=== PATIENT | male | born 1950 | race Caucasian/White ===

== ENCOUNTER 2017-08-23 10:05 | Outpatient (CLI) | payer OTHER ==
[~2017-08-23] VITALS: Ht 185.4 cm; Wt 94.1 kg
--- NOTE | ~2017-08-23 | HEMODYNAMI ---
PATIENT:KEL IBARRA MEDICAL RECORD: [id number] : 50 LOCATION:[facility] ADMISSION DATE: 08/23/17 Generatedon:08/23/201712:35 Patient name: KEL IBARRA Patient #: [id number] SSN: DO B: 1950 Date of study: 08/23/2017 Page: Of Hemodynamic Procedure Report Patient Data Patient Demographics Procedure consent was obtained First Name: KEL Gender: Male Last Name: STACEY : 1950 Middle Initial: CHRIS Age: 66 year(s) Patient #: [id number] Race: Unknown Additional ID: [id number] Contact details [address]: [address] [place] [address] State: [place] City: [place] Zip code: [address] Past Medical History Allergies Allergen Reaction Date Comments Reported Other allergy 08/23/2017 zetia, niacin Admission Admission Data Admission Date: 08/23/2017 Admission Time: 10:05 Procedure Procedure Types Cath Procedure Diagnostic Procedure LHC LH w/Coronaries Cardioversion PCI Procedure Coronary Stent Coronary Stent Initial Miscellaneous Procedures Moderate Sedation up to 30 minutes Procedure Description Procedure Date Procedure Date: 08/23/2017 Procedure Start Time: 12:15 Procedure End Time: 12:34 Procedure Staff Name Function Richmond Armendariz MD Performing Physician Suzanne Rockwell RT Monitor Madisyn Hernández RT Scrub Neo Michel RN Nurse Ramirez Rob RN Locksmith Clarice Foy CRNA Additional personnel Procedure Data Cath Procedure Fluoroscopy Diagnostic fluoroscopy Total fluoroscopy Time: 4.5 time: 4.5 min min Diagnostic fluoroscopy Total fluoroscopy dose: 637 dose: 637 mGy mGy Contrast Material Contrast Material Type Amount (ml) Isovue 300 107 Entry Location Entry Primary Successful Side Size Upsize Upsize Entry Closure Succes sful Closure Location (Fr) 1 (Fr) 2 (Fr) Remarks Device Remarks Femoral Right 5 Fr 6 Fr Exoseal artery Short Estimated blood loss: 10 ml Diagnostic catheters Device Type Used For End Catheter Placement MULTIPACK Pigtail 5 Fr LV Angiography catheter MULTIPACK JL 4.0 5Fr Left Coronary catheter Angiography MULTIPACK 3DRC 5Fr Right Coronary catheter Angiography Procedure Complications No complications Procedure Medications Medication Administration Route Dosage 0.9% NaCl I.V. 100 ml/hr Oxygen NC 3 l/min Heparin Flush Bag added to field 2 bags (1000units/500ml NS) Lidocaine 2% added to field 20 Refer to Anesthesia Notes for Sedation Medications Heparin Bolus I.V. 4000 units Integrilin (Bolus I.V. 8.5 ml 2mg/ml) Integrilin (Bolus wasted 1.5 ml 2mg/ml) Plavix P.O. 600 mg Hemodynamics Rest Heart Rate: 58 (bpm) Snapshots Pre Cath Intra NCS Post Cath Vital Signs Time Heart Resp SPO2 etCO2 NIBP (mmHg) Rhythm Pain Sedation Rate (ipm) (%) (mmHg) Status Level (bpm) 11:57:41 74 18 99 29.5 115/81(104) A-Fib 0 (11) 10(A) , No pain 12:02:16 58 20 100 32.5 103/74(83) A-Fib 0 (11) 10(A) , No pain 12:06:50 175 15 100 33.2 108/78(92) A-Fib 0 (11) 10(A) , No pain 12:11:29 67 20 100 27.2 110/60(85) A-Fib 0 (11) 10(A) , No pain 12:16:05 47 23 100 15.8 113/66(79) NSR 0 (11) 9(A) , No pain 12:20:42 48 19 100 15.1 97/57(76) NSR 0 (11) 9(A) , No pain 12:25:16 49 18 18.1 93/53(71) NSR 0 (11) 10(A) , No pain 12:29:51 49 18 22.6 93/51(68) NSR 0 (11) 10(A) , No pain 12:34:26 47 18 12.1 99/52(66) NSR 0 (11) 10(A) , No pain Medications Time Medication Route Dose Verified Delivered Reason Notes Effectiveness by by 12:02:40 0.9% NaCl I.V. 100 Neo Neo Per physician ml/hr Marilu Michel RN RN 12:02:54 Oxygen NC 3 Neo Neo Per physician l/min Marilu Michel RN RN 12:03:08 Heparin Flush added 2 Neo Neo used for Bag to bags Marilu Michel procedure (1000units/500ml field RN RN NS) 12:03:23 Lidocaine 2% added 20ml Neo Neo for local to vial Marilu Michel anesthetic field RN RN 12:13:46 Refer to Neo Neo for sedation Anesthesia Notes Marilu Michel for Sedation RN RN Medications 12:21:59 Heparin Bolus I.V. 4000 Neo Neo for units Marilu Michel anticoagulation RN RN 12:22:20 Integrilin I.V. 8.5 Neo Neo for (Bolus 2mg/ml) ml Marilu Michel antiplatelet RN RN therapy 12:22:32 Integrilin wasted 1.5 Neo Neo to sharp's (Bolus 2mg/ml) ml Marilu Michel RN RN 12:32:33 Plavix P.O. 600 Neo Neo for mg Marilu Michel antiplatelet RN RN therapy Procedure Log Time Note 11:42:45 Ramirez Rob RN sent for patient. Start room use. 11:42:46 Time tracking: Regular hours 11:42:50 Plan of Care:Hemodynamics will remain stable., Cardiac rhythm will remain stable., Comfort level will be maintained., Respiratory function will remain adequate., Patient/ family verbilizes understanding of procedure., Procedure tolerated without complication., Recovers from procedure without complications.. 11:47:09 Patient received from Pre/Post Procedure Room to [facility] 1 Alert and oriented. Tansferred to table in Supine position. 11:47:10 Warm blankets applied, and hanny hugger turned on for patient comfort. 11:47:10 Correct patient and procedure confirmed by team. 11:47:12 Signed procedure consent form obtained from patient. 11:47:12 ECG and BP/O2 sat monitors applied to patient. 11:47:13 Full Disclosure recording started 11:47:31 Quick Combo opened to sterile field. 11:47:40 Quick combo pads placed on patients chest and back. 11:56:10 Vital chart was started 11:56:17 Rhythm: atrial fibrillation 11:56:35 H&P Date Dictated: 07/26/2017 Within 30 days and on chart., H&P Addendum completed by physician on day of procedure. (MUST COMPLETE FOR ALL OUTPATIENTS). 11:56:37 Pre-procedure instructions explained to patient. 11:56:37 Pre-op teaching completed and patient verbalized understanding. 11:56:38 Family in waiting room. 11:56:40 Patient NPO since Midnight. 11:57:06 Patient allergic to Other allergyzetia, niacin 11:57:09 Is the patient allergic to Iodine/contrast media? No. 11:57:20 Is patient on blood thinner?No 11:57:23 ACC The patient was administered the following blood thiners within the last 24 hours: Xarelto 11:57:26 Patient diabetic? Yes. 11:57:27 If diabetic: On Metformin? Yes 11:57:31 If on Metformin: Last Dose? 08/22/2017 11:57:36 Previous problem with sedation/anesthesia? No ? 11:57:38 Snore? Yes 11:57:39 Sleep apnea? No 11:57:41 Deviated septum? No 11:57:42 Opens mouth fully? Yes 11:57:43 Sticks out tongue? Yes 11:57:44 Airway obstruction? No ? 11:57:46 Dentures? No ? 11:57:48 Pre procedure: right dorsailis pedis pulse 2+ Normal; easily identifiable; not easily obliterated 11:57:50 Modified Lc's test Ulnar > 7 seconds. 11:57:52 Patient pain scale 0/10 ?. 11:57:57 IV patent on arrival in left hand with 0.9% NaCl at O. 11:58:00 Lab results completed and on chart. 11:58:02 Right groin area was prepped with chlora-prep and draped in sterile fashion 11:58:03 Alarms reviewed by R. N. 11:58:03 Sharps counted by scrub and verified by R.N. 11:58:20 Clarice Foy CRNA present and monitoring patient for TIVA. 12:02:40 0.9% NaCl 100 ml/hr I.V. was administered by Neo Michel RN; Per physician; 12:02:54 Oxygen 3 l/min NC was administered by Neo Michel RN; Per physician; 12:03:07 Baseline sample Acquired. 12:03:08 Heparin Flush Bag (1000units/500ml NS) 2 bags added to field was administered by Neo Michel RN; used for procedure; 12:03:23 Lidocaine 2% 20ml vial added to field was administered by Neo Michel RN; for local anesthetic; 12:06:32 Physician paged 12:10:57 Final Timeout: patient, procedure, and site verified with staff and physician. All members of the team are in agreement. 12:11:00 Right groin site verified by team. 12:11:02 Physical assessment completed. ASA score P 2 - A patient with mild systemic disease as per Richmond Armendariz MD. 12:11:12 Sedation plan: TIVA Medication:Propofol 12:13:13 Use device set Femoral Dx 12:13:16 ACIST Syringe (30587) opened to sterile field. 12:13:17 Bag Decanter (2002S) opened to sterile field. 12:13:17 Medline Cath Pack ([id number]) opened to sterile field. 12:13:18 SHEATH 5FR Walsh (UPG444) opened to sterile field. 12:13:19 DIAGNOSTIC WIRE .035 260cm J wire (679545) opened to sterile field. 12:13:20 ACIST Hand Control (98211) opened to sterile field. 12:13:21 ACIST Manifold (97052) opened to sterile field. 12:13:21 DIAGNOSTIC Multipack 5Fr catheter set (GM4815) opened to sterile field. 12:13:22 Tegaderm 4 x 4 (1626W) opened to sterile field. 12:13:23 PERCUTANEOUS ENTRY 19GA needle opened to sterile field. 12:13:46 Refer to Anesthesia Notes for Sedation Medications was administered by Neo Michel RN; for sedation; 12:14:35 Procedure started. 12:14:42 Defibrillator synced and charged to 275 joules 12:14:42 Defibrillator synced and charged to 200 Joules. 12:14:43 Shock delivered. 12:14:49 Patient cardioverted to sinus bradycardia. 12:15:30 Local anesthetic to right femoral artery with Lidocaine 2% by Richmond Armendariz MD.INITIAL ACCESS ONLY 12:15:48 A 5 Fr sheath was inserted into the Right Femoral artery 12:15:59 Baseline sample Acquired. 12:16:29 A MULTIPACK Pigtail 5 Fr catheter was advanced over the wire and used for LV Angiography. 12:16:36 LV gram done using MADDOX 12:16:39 Injector settings: Ml/sec: 10, Volume: 20, 12:17:05 EF : 30 % 12:17:13 Catheter removed. 12:17:18 A MULTIPACK JL 4.0 5Fr catheter was advanced over the wire and used for Left Coronary Angiography. 12:18:22 Catheter removed. 12:18:26 A MULTIPACK 3DRC 5Fr catheter was advanced over the wire and used for Right Coronary Angiography. 12:18:30 Use device set [facility] PCI 12:18:33 INFLATOR Merit BasixCompak (XH4816) opened to sterile field. 12:18:34 SHEATH 6FR Walsh (VGZ373) opened to sterile field. 12:18:41 CHOICE PT Extra Support 182cm wire ([id number]) opened to sterile field. 12:19:22 GUIDE 6FR XBLAD 3.5 catheter ([id number]) opened to sterile field. 12:19:24 Catheter removed. 12:20:53 Sheath upsized to a 6 Fr Short. 12:21:00 6 Fr XBLAD 3.5 guide catheter was inserted over the wire 12:21:59 Heparin Bolus 4000 units I.V. was administered by Neo Michel RN; for anticoagulation; 12:22:12 Coice PT ES wire advanced. 12:22:20 Integrilin (Bolus 2mg/ml) 8.5 ml I.V. was administered by Neo Michel RN; for antiplatelet therapy; 12:22:32 Integrilin (Bolus 2mg/ml) 1.5 ml wasted was administered by Neo Michel RN; to sharp's; 12:24:17 Inflation Number: 1 A INTEGRITY RX 3.0 x 18 stent ([id number]) was prepped and advanced across the Mid CX. The stent was deployed at 17 CANDIDO for 0:10 (min:sec). 12:25:48 Stent catheter was removed intact over wire. 12:27:20 The EUPHORA 2.0 x 15 Balloon ([id number]) was advanced and then removed because of failure to cross lesion 12:27:26 Balloon removed over the wire. 12:27:27 Wire removed. 12:27:27 Guide catheter removed. 12::39 Sheath removed intact; hemostasis achieved with Exoseal to the Right Femoral artery. 12:27:40 Procedure ended.(Physican Out) 12::54 Fluoroscopy time 04.50 minutes. 12::58 Fluoroscopy dose: 637 mGy 12::58 Flurop Dose total: 637 12:28:00 Contrast amount:Isovue 300 107ml. 12:28:02 Sharps counted by scrub and verified by R.N. 12:28:05 Insertion/operative site no bleeding no hematoma. 12:28:14 Post-op/insertion site Right Femoral artery dressed using a 4 x 4 and Tegaderm. 12:28:19 Post right femoral artery:stable, soft, clean and dry 12::58 Post Procedure Pulses reassessed and unchanged 12:30:09 Post-procedure physical assessment completed. ASA score P 2 - A patient with mild systemic disease as per Richmond Armendariz MD. 12:30:16 Post procedure rhythm: sinus bradycardia 12:30:20 Estimated blood loss: 10 ml 12::58 Post procedure instruction explained to patient.Patient verbalizes understanding. 12::58 Patient needs reinforcement of post procedure teaching. 12:31:07 Procedure type changed to Cath procedure, Diagnostic procedure, LHC, LHC w/Coronaries, Cardioversion, PCI procedure, Coronary Stent, Coronary Stent Initial, Miscellaneous Procedures, Moderate Sedation up to 30 minutes 12:31:12 Procedure Complication : No complications 12:31:14 See physician's report for complete and final results. 12:31:25 EXOSEAL 6Fr (EX600) opened to sterile field. 12:32:33 Plavix 600 mg P.O. was administered by Neo Michel RN; for antiplatelet therapy; 12:33:10 Procedure and supply charges have been captured, reviewed, submitted and are correct. 12:34:33 Vital chart was stopped 12:34:36 Report given to Pre/Post Procedure Room. 12:34:38 Patient transfered to Pre/Post Procedure Room with Stretcher. 12:34:46 Procedure ended. 12:34:46 Full Disclosure recording stopped 12:34:49 End room use (Document Last) Intervention Summary Intervention Notes Time ActionType Lesion and Equipment Action# Pressure Duration Attributes Used 12:24:17 Place stent Mid CX INTEGRITY RX 1 17 00:10 3.0 x 18 stent ([id number]) 12:27:20 Discard EUPHORA 2.0 Balloon x 15 Balloon ([id number]) Device Usage Item Name Manufacture Quantity Catalog Number Hospital Part Current Mini mal Lot# / Charge Number Stock Stock Serial# Code Quick Combo Edge Systems 1 [id number] 503844 709066 928539 5 ACIST Acist 1 56599 947673 454211 958489 20 Syringe Medical (08260) Systems Inc Bag Decanter Microtek 1 2001S 207382 38117 013857 5 (2001S) Medical Inc. Medline Cath Cardinal 1 [id number] 230857 29054 757554 5 Pack Health ([id number]) SHEATH 5FR Terumo 1 BTW705 175808 613164 123274 40 Walsh (RKK687) DIAGNOSTIC St Dhaval 1 066596 654622 789040 836048 30 WIRE .035 260cm J wire (552799) ACIST Hand Acist 1 26133 631161 896678 253512 5 Control Medical (47145) Systems Inc ACIST Acist 1 84022 860567 709201 587733 5 Manifold Medical (49637) Systems Inc DIAGNOSTIC Cardinal 1 OK0102 774376 06023 391324 30 Multipack latakoo 5Fr catheter set (YM4937) Tegaderm 4 x 3M 1 1626W 211440 625279 076258 5 4 (1626W) PERCUTANEOUS Cook Medical 1 R08785 179607 410427 5 ENTRY 19GA needle MULTIPACK Cardinal 1 401536 5 Pigtail 5 Fr Health catheter MULTIPACK JL Cardinal 1 230358 5 4.0 5Fr Health catheter MULTIPACK Cardinal 1 290592 5 3DRC 5Fr Health catheter INFLATOR Merit 1 BS2817 721855 803049 553377 15 [employer] Medical BasixCompak (YX6112) SHEATH 6FR Terumo 1 UGS900 408686 272567 136595 40 Walsh (KIB249) CHOICE PT [place] 1 [id number] 671645 710820 063357 5 Extra Scientific Support 182cm wire ([id number]) GUIDE 6FR Cardinal 1 [id number] 346523 130090 532067 10 XBLAD 3.5 Health catheter (67144040) INTEGRITY RX Medtronic 1 [id number] 071657 100732 804500 5 [id number] 3.0 x 18 stent ([id number]) EUPHORA 2.0 Medtronic 1 [id number] 673092 578575 913094 5 [id number] x 15 Balloon ([id number]) EXOSEAL 6Fr Cardinal 1 EX600 269841 893113 541571 10 (EX600) Health Signature Audit [place] Stage Time Signature Unsigned Intra-Procedure 08/23/2017 Suzanne 12:34:59 PM Counts RT(R) Signatures Monitor : Suzanne Signature : Counts RT Date : Time : [address] [address]
[2017-08-23] MEDS ORDERED: ALTACE10 MG PO (10:32)
[2017-08-23] MEDS ORDERED: CRESTOR40 MG PO (10:33)
[2017-08-23] MEDS ORDERED: METOPROLOL TART25 MG PO (10:33)
[2017-08-23] MEDS ORDERED: AVODART0.5 MG PO (10:33)
[2017-08-23] MEDS ORDERED: JENTADUETO 2.51 EACH PO (10:34)
[2017-08-23] MEDS ORDERED: FISH OIL 1,0001 CA1 PO (10:34)
[2017-08-23] MEDS ORDERED: SORINE80 MG PO (10:34)
[2017-08-23] MEDS ORDERED: XARELTO20 MG PO (10:34)
[2017-08-23] MEDS ORDERED: CO Q-10200 MG PO (10:35)
[2017-08-23] MEDS ORDERED: BAYER CHEWABLE81 MG PO (10:35)
[2017-08-23] MEDS ORDERED: VITAMIN D31000 UNIT PO (10:35)
[2017-08-23] MEDS ORDERED: FLOVENT DI50 MCG/DIS INH (10:36)
[2017-08-23 10:54] LABS: BASOPHILS 0.1 % (0-2); EOSINOPHILS 3.5 % (0-7); HEMATOCRIT 48.5 % (42.0-54.0); HEMOGLOBIN 16.5 g/dL (13.5-17.5); IMMATURE GRANULOCYTES 0.3 % (0-5); LYMPHOCYTES 25.1 % (15-50); MCH 31.1 pg (26.0-34.0); MCV 91.3 fL (80.0-100.0); MEAN PLATELET VOLUME 9.5 fL (7.4-10.4); MONOCYTES 11.3 % (2-11); NEUTROPHILS 59.7 % (40-80); PLATELET COUNT 145 10x3/uL (130-400); RBC 5.31 10x6/uL (4.20-6.10); WBC 7.9 10x3/uL (4.8-10.8)
[2017-08-23 11:06] LABS: CALC OSMOLALITY 283 mosm/kg (275-300); CALCIUM 9.6 mg/dL (8.5-10.1); CARBON DIOXIDE 30.2 mmol/L (21.0-32.0); CHLORIDE - SERUM 103 mmol/L (98-107); CREATININE - SERUM 0.9 mg/dL (0.6-1.3); GLUCOSE 164 mg/dL (74-106); INR 1.14 (0.85-1.17); POTASSIUM - SERUM 4.7 mmol/L (3.5-5.1); PROTIME 14.2 SECONDS (11.6-15.0); SODIUM 140 mmol/L (136-145); UREA NITROGEN 14 mg/dL (7-18); eGFR NON AFRICAN AMERICAN 90 mL/min (90-120)
[2017-08-23 11:11] VITALS: BP 119/79; Ht 185.4 cm; Wt 94.1 kg
--- NOTE | 2017-08-23 13:00 | NUR ---
2L NC, NO RESP DISTRESS. RIGHT GROIN 6F EXOSEAL CDI, NO BLEEDING OR HEMATOMA NOTED. NO C/O NAUSEA OR PAIN. VSS. FAMILY AT BEDSIDE, CALL LIGHT WITHIN REACH.
[2017-08-23] MEDS ORDERED: PLAVIX75 MG PO (13:03)
--- NOTE | 2017-08-23 13:30 | NUR ---
2L NC, NO RESP DISTRESS. RIGHT GROIN 6F EXOSEAL CDI, NO BLEEDING OR HEMATOMA NOTED. NO C/O PAIN OR NAUSEA. VSS. AT BEDSIDE, WILL CONTINUE TO MONITOR CLOSELY.
--- NOTE | 2017-08-23 13:45 | NUR ---
RESTING QUIETLY WITH EYES CLOSED. VSS. RIGHT GROIN 5F EXOSEAL CDI, NO BLEEDING OR HEMATOMA NOTED. NO C/O PAIN. CALL LIGHT WITHIN REACH.
--- NOTE | 2017-08-23 16:00 | NUR ---
HOB ELEVATED 30 DEGREES. RIGHT GROIN 6F EXOSEAL CDI, NO BLEEDING OR HEMATOMA NOTED. VSS.
--- NOTE | 2017-08-23 16:15 | NUR ---
LEFT PIV D/C'D WITH CATHETER INTACT, BAND AID TO SITE. UP TO BEDSIDE TO GET DRESSED.
--- NOTE | 2017-08-23 16:20 | NUR ---
DISCHARGE INSTRUCTIONS GIVEN, VERBALIZED UNDERSTANDING.
--- NOTE | 2017-08-23 16:30 | NUR ---
TAKEN OUT VIA WHEELCHAIR BY CATH DIRECTOR OF LOGISTICS. LEFT FACILITY WITH FAMILY AND ALL PERSONAL BELONGINGS.
--- NOTE | 2017-08-29 12:15 | OP ---
PATIENT NAME: KEL IBARRA MEDICAL RECORD: [id number] :50 LOCATION:D.CAT ADMISSION DATE: SURGEON: DEJUAN JACK MD DATE OF OPERATION: 08/23/2017 PROCEDURES: 1. DC cardioversion. 2. PTCA stent left circumflex. 3. Left heart catheterization. 4. Selective coronary angiography. 5. Left ventriculogram. INDICATION: Angina, coronary artery disease, and atrial fibrillation. IV conscious sedation was per anesthesia. Continuous heart rate, O2 saturation, blood pressure monitoring were all undertaken, all of which remains stable. He received 1 shock at 275 joules restoring sinus rhythm. FINDINGS: Left ventriculogram was performed in standard 30-degree MADDOX view, reveals good cardiac wall motion throughout all segments. Overall ejection fraction 35%. SELECTIVE CORONARY ANGIOGRAPHY: 1. Left main showed no significant angiographic disease. 2. Left anterior descending has previously placed stents proximally with up to 75% in-stent restenosis. 3. Left circumflex has 80% stenosis in the mid vessel. 4. Right coronary has moderate irregularities, but no flow-limiting stenosis. Previously placed stent of the right coronary are widely patent. PTCA STENT OF THE LEFT CIRCUMFLEX: The stent used was a 3.30 x 18 mm Integrity. Result was 0% residual stenosis. OVERALL IMPRESSION: Successful percutaneous transluminal coronary angioplasty stent of the left circumflex going from 80% initial stenosis to 0% residual. PLAN: Planned for laser atherectomy of the LAD in the near future for the in-stent restenosis of the LAD. TRANSINT:[id number] Voice Confirmation ID: [id number] DOCUMENT ID: [id number] DEJUAN JACK MD at 1215 CC: [id number] DICTATION DATE: 08/23/17 1231 RETAIL ANALYST: 08/23/17 1349 [facility] CLI 08/23/17 [place] [id number]
== END 2017-08-23 16:30 | disposition home or self-care (01) ==
LOC: D.CATH 10:05
PROVIDERS: Internal Medicine Interventional Cardiology
DX: I25.119 Atherosclerotic heart disease of native coronary artery with unspecified angina pectoris (principal); T82.855A Stenosis of coronary artery stent, initial encounter; I48.91 Unspecified atrial fibrillation; Z01.812 Encounter for preprocedural laboratory examination

== ENCOUNTER → 2017-08-25 07:52 | Outpatient (CLI) | payer OTHER ==
[~2017-08-25] VITALS: Ht 185.4 cm; Wt 94.5 kg
--- NOTE | ~2017-08-25 | HEMODYNAMI ---
PATIENT:KEL IBARRA MEDICAL RECORD: [id number] : 50 LOCATION:[facility]JA ADMISSION DATE: 08/25/17 Generatedon:08/25/201710:45 Patient name: KEL IBARRA Patient #: [id number] SSN: DO B: 1950 Date of study: 08/25/2017 Page: Of Hemodynamic Procedure Report Patient Data Patient Demographics Procedure consent was obtained First Name: KEL Gender: Male Last Name: STACEY : 1950 Middle Initial: CHRIS Age: 66 year(s) Patient #: [id number] Race: Unknown Additional ID: [id number] Contact details [address]: [address] [place] [address] State: [place] City: [place] Zip code: [address] Past Medical History Allergies Allergen Reaction Date Comments Reported Other allergy 08/23/2017 zetia, niacin Admission Admission Data Admission Date: 08/25/2017 Admission Time: 7:52 Procedure Procedure Types Cath Procedure PCI Procedure Coronary Atherectomy Atherectomy w/PTCA Coronary Initial Miscellaneous Procedures Moderate Sedation up to 30 minutes Procedure Description Procedure Date Procedure Date: 08/25/2017 Procedure Start Time: 10:22 Procedure End Time: 10:45 Procedure Staff Name Function Richmond Armendariz MD Performing Physician Suzanne Rockwell RT Monitor Madisyn Hernández RT Scrub Neo Michel RN Nurse Procedure Data Cath Procedure Fluoroscopy Diagnostic fluoroscopy Total fluoroscopy Time: 7.4 time: 7.4 min min Diagnostic fluoroscopy Total fluoroscopy dose: 909 dose: 909 mGy mGy Contrast Material Contrast Material Type Amount (ml) Isovue 300 60 Entry Location Entry Primary Successful Side Size Upsize Upsize Entry Closure Succes sful Closure Location (Fr) 1 (Fr) 2 (Fr) Remarks Device Remarks Femoral Right 6 Fr Exoseal artery Short Estimated blood loss: 10 ml Procedure Complications No complications Procedure Medications Medication Administration Route Dosage 0.9% NaCl I.V. 100 ml/hr Oxygen NC 2 l/min Heparin Flush Bag added to field 2 bags (1000units/500ml NS) Lidocaine 2% added to field 20 Versed I.V. 2 mg Fentanyl I.V. 100 mcg Heparin Bolus I.V. 4000 units Hemodynamics Rest Heart Rate: 49 (bpm) Snapshots Pre Cath Intra NCS Post Cath Vital Signs Time Heart Resp SPO2 etCO2 NIBP Rhythm Pain Sedation Rate (ipm) (%) (mmHg) (mmHg) Status Level (bpm) 10:08:25 49 20 99 35.4 108/67(88) NSR 0 (11) 10(A) , No pain 10:13:40 50 23 99 33.9 107/68(84) NSR 0 (11) 10(A) , No pain 10:18:16 50 17 97 39.1 102/58(74) NSR 0 (11) 10(A) , No pain 10:22:49 52 18 98 37.6 107/68(88) NSR 0 (11) 10(A) , No pain 10:27:21 52 13 96 34.6 93/59(74) NSR 0 (11) 10(A) , No pain 10:31:54 54 16 96 0 96/63(82) NSR 0 (11) 9(A) , No pain 10:37:07 50 14 97 19.6 96/59(74) NSR 0 (11) 9(A) , No pain 10:41:40 54 16 98 39.2 109/68(90) NSR 0 (11) 9(A) , No pain Medications Time Medication Route Dose Verified Delivered Reason Notes Effectiveness by by 10:08:13 0.9% NaCl I.V. 100 Neo Neo Per physician ml/hr Marilu Michel RN RN 10:08:31 Oxygen NC 2 Neo Neo Per physician l/min Marilu Michel RN RN 10:08:49 Heparin Flush added 2 Neo Neo used for Bag to bags Marilu Michel procedure (1000units/500ml field ALEJANDRE RN NS) 10:09:04 Lidocaine 2% added 20ml Neo Neo for local to vial Marilu Michel anesthetic field ALEJANDRE RN 10:21:58 Versed I.V. 2 mg Neo Neo for sedation Marilu Michel RN, RN 10:22:11 Fentanyl I.V. 100 Neo Neo for sedation mcg Lorigan Lorigan RN RN 10:24:22 Heparin Bolus I.V. 4000 Neo Larson for units Marilu Michel anticoagulation RN recreation superintendent Log Time Note 9:52:24 Suzanne Rockwell RT(R) sent for patient. Start room use. 9:52:25 Time tracking: Regular hours 9:52:29 Plan of Care:Hemodynamics will remain stable., Cardiac rhythm will remain stable., Comfort level will be maintained., Respiratory function will remain adequate., Patient/ family verbilizes understanding of procedure., Procedure tolerated without complication., Recovers from procedure without complications.. 10:06:51 Patient received from Pre/Post Procedure Room to CCL 1 Alert and oriented. Tansferred to table in Supine position. 10:06:52 Warm blankets applied, and hanny hugger turned on for patient comfort. 10:06:53 Correct patient and procedure confirmed by team. 10:06:54 Signed procedure consent form obtained from patient. 10:06:54 ECG and BP/O2 sat monitors applied to patient. 10:06:55 Full Disclosure recording started 10:07:38 Baseline sample Acquired. 10:07:38 Vital chart was started 10:07:44 Rhythm: sinus bradycardia 10:07:57 H&P Date Dictated: 08/25/2017 Within 30 days and on chart., New H&P dictated by physician.. 10:07:59 Pre-procedure instructions explained to patient. 10:07:59 Pre-op teaching completed and patient verbalized understanding. 10:08:01 Family in patients room. 10:08:08 Patient NPO since Midnight. 10:08:13 0.9% NaCl 100 ml/hr I.V. was administered by Neo Michel RN; Per physician; 10:08:15 Is the patient allergic to Iodine/contrast media? No. 10:08:16 Is patient on blood thinner?Yes 10:08:20 ACC The patient was administered the following blood thiners within the last 24 hours: ACCPlavix, ACCHeparin 10:08:28 Previous problem with sedation/anesthesia? No ? 10:08:31 Oxygen 2 l/min NC was administered by Neo Michel RN; Per physician; 10:08:49 Heparin Flush Bag (1000units/500ml NS) 2 bags added to field was administered by Neo Michel RN; used for procedure; 10:08:53 Patient diabetic? Yes. 10:08:54 If diabetic: On Metformin? No 10:09:04 Lidocaine 2% 20ml vial added to field was administered by Neo Michel RN; for local anesthetic; 10:09:52 Snore? Yes 10:09:53 Sleep apnea? No 10:09:54 Deviated septum? No 10:09:55 Opens mouth fully? No 10:09:56 Sticks out tongue? Yes 10:09:58 Airway obstruction? No ? 10:10:00 Dentures? No ? 10:10:04 Pre procedure: right dorsailis pedis pulse 2+ Normal; easily identifiable; not easily obliterated 10:10:07 Patient pain scale 0/10 ?. 10:10:13 IV patent on arrival in left hand with 0.9% NaCl at [facility]. 10:10:17 Lab results completed and on chart. 10:10:20 Right groin area was prepped with chlora-prep and draped in sterile fashion 10:10:21 Alarms reviewed by R. N. 10:10:21 Sharps counted by scrub and verified by R.N. 10:10:26 Use device set CATH PACK 10:10:46 Use device set TAUTH PCI 10:10:51 ACIST Syringe (51398) opened to sterile field. 10:10:51 ACIST Hand Control (63501) opened to sterile field. 10:10:52 ACIST Manifold (84762) opened to sterile field. 10:10:52 Medline Cath Pack ([id number]) opened to sterile field. 10:10:53 Bag Decanter () opened to sterile field. 10:10:54 DIAGNOSTIC WIRE .035 260cm J wire (583363) opened to sterile field. 10:10:54 PERCUTANEOUS ENTRY 19GA needle opened to sterile field. 10:10:55 Tegaderm 4 x 4 (1626W) opened to sterile field. 10:10:55 INFLATOR Merit BasixCompak (VU4201) opened to sterile field. 10:10:56 SHEATH 6FR Philippi (PTN590) opened to sterile field. 10:11:09 CHOICE PT Extra Support 182cm wire ([id number]) opened to sterile field. 10:11:12 GUIDE 6FR XBLAD 3.5 catheter ([id number]) opened to sterile field. 10:16:17 Zero performed for pressure channel P1 10:18:46 Physician paged 10:20:26 Final Timeout: patient, procedure, and site verified with staff and physician. All members of the team are in agreement. 10:20:29 Right groin site verified by team. 10:20:32 Physical assessment completed. ASA score P 2 - A patient with mild systemic disease as per Richmond Armendariz MD. 10:20:35 Sedation plan: IV Moderate Sedation Medication:Versed, Fentanyl 10::58 Versed 2 mg I.V. was administered by Neo Michel RN; for sedation; ::58 Procedure started. 10:22:01 Local anesthetic to right femoral artery with Lidocaine 2% by Richmond Armendariz MD.INITIAL ACCESS ONLY 10:22:11 Fentanyl 100 mcg I.V. was administered by Neo Michel RN; for sedation; ::18 A 6 Fr Short sheath was inserted into the Right Femoral artery 10:22:53 6 Fr XBLAD 3.5 guide catheter was inserted over the wire 10:23:43 CHOICE PT ES wire advanced. 10:24:22 Heparin Bolus 4000 units I.V. was administered by Neo Michel RN; for anticoagulation; 10::29 A LASER ELCA 0.9 Rx atherectomy catheter (813533) was prepped and advanced across the Mid LAD lesion. Pass Number: 1 10:26:39 Laser pass to mLAD with Fluence of 40 and Rate of 40. 10:26:58 Laser pass to mLAD with Fluence of 40 and Rate of 40. 10:27:14 Laser pass to mLAD with Fluence of 40 and Rate of 40. 10:27:31 Laser catheter removed. 10:27:46 Wire removed. 10:27:47 Guide catheter removed. 10:28:37 6 Fr XBALD 4.0 guide catheter was inserted over the wire 10:28:48 GUIDE 6FR XBLAD 4.0 catheter ([id number]) opened to sterile field. 10:29:09 CHOICE PT ES wire advanced. 10:31:27 A LASER ELCA 0.9 Rx atherectomy catheter (610461) was prepped and advanced across the Mid LAD lesion. Pass Number: 4 10:32:07 Laser pass to mLAD with Fluence of 40 and Rate of 40. 10:32:15 Laser pass to mLAD with Fluence of 40 and Rate of 40. 10:32:30 Laser catheter removed. 10:35:25 Inflation number: 1 A EUPHORA 3.5 x 20 Balloon ([id number]) was prepped and advanced across the Mid LAD, then inflated to 17 CANDIDO for 0:07 (min:sec). 10:35:38 Balloon removed over the wire. 10:38:09 Laser total pulses delivered: 1820 10:38:15 Laser total treatment time: 0 minutes 45 seconds 10:39:07 Inflation number: 2 The EUPHORA 3.5 x 20 Balloon ([id number]) was reinflated across the Mid LAD, to 17 CANDIDO for 0:10 (min:sec). 10:39:49 Inflation number: 3 The EUPHORA 3.5 x 20 Balloon ([id number]) was reinflated across the Mid LAD, to 0 CANDIDO for 0:09 (min:sec). 10:40:17 Balloon removed over the wire. 10:40:17 Wire removed. 10:40:18 Guide catheter removed. 10:40:25 Sheath removed intact; hemostasis achieved with Exoseal to the Right Femoral artery. 10:40:34 Procedure ended.(Physican Out) 10:40:49 Fluoroscopy time 07.40 minutes. 10:41:04 Flurop Dose total: 909 10:41:04 Fluoroscopy dose: 909 mGy 10:41:21 EXOSEAL 6Fr (EX600) opened to sterile field. 10:42:05 Contrast amount:Isovue 300 60ml. 10:42:07 Sharps counted by scrub and verified by R.N. 10:42:08 Insertion/operative site no bleeding no hematoma. 10:42:12 Post-op/insertion site Right Femoral artery dressed using a 4 x 4 and Tegaderm. 10:42:15 Post right femoral artery:stable, soft, clean and dry 10:42:17 Post Procedure Pulses reassessed and unchanged 10:42:20 Post-procedure physical assessment completed. ASA score P 2 - A patient with mild systemic disease as per Richmond Armendariz MD. 10:42:22 Post procedure rhythm: unchanged. 10:42:25 Estimated blood loss: 10 ml 10:42:27 Post procedure instruction explained to patient.Patient verbalizes understanding. 10:42:27 Patient needs reinforcement of post procedure teaching. 10:43:08 Procedure type changed to Cath procedure, PCI procedure, Coronary Atherectomy, Atherectomy w/PTCA Coronary Initial, Miscellaneous Procedures, Moderate Sedation up to 30 minutes 10:43:12 Procedure Complication : No complications 10:43:16 See physician's report for complete and final results. 10:44:00 Procedure and supply charges have been captured, reviewed, submitted and are correct. 10:44:55 Vital chart was stopped 10:44:56 Report given to Pre/Post Procedure Room. 10:44:59 Patient transfered to Pre/Post Procedure Room with Stretcher. 10:45:09 Procedure ended. 10:45:09 Full Disclosure recording stopped 10:45:12 End room use (Document Last) Intervention Summary Intervention Notes Time ActionType Lesion and Equipment Action# Pressure Duration Attributes Used 10:26:29 Atherectomy Mid LAD LASER ELCA 00:00 0.9 Rx atherectomy catheter (302176) 10:31:27 Atherectomy Mid LAD LASER ELCA 00:00 0.9 Rx atherectomy catheter (298797) 10:35:25 Inflate Mid LAD EUPHORA 3.5 1 17 00:07 balloon x 20 Balloon ([id number]) 10:39:07 Reinflate Mid LAD EUPHORA 3.5 2 17 00:10 balloon x 20 Balloon ([id number]) 10:39:49 Reinflate Mid LAD EUPHORA 3.5 3 0 00:09 balloon x 20 Balloon ([id number]) Device Usage Item Name Manufacture Quantity Catalog Number Hospital Part Current Mini [facility] Lot# / Charge Number Stock Stock Serial# Code ACIST Acist 1 22259 346611 592062 018707 20 Syringe Medical (01395) Systems Inc ACIST Hand Acist 1 82913 625517 310856 047445 5 Control Medical (61229) Systems Inc ACIST Acist 1 08465 381710 055648 499408 5 Manifold Medical (50019) Systems Inc Medline Cath Cardinal 1 [id number] 210871 21638 312070 5 TransMedics ([id number]) Bag Decanter Microtek 1 479566 72132 875788 5 () Medical Inc. DIAGNOSTIC St Dhaval 1 838922 395196 370476 786393 30 WIRE .035 260cm J wire (119511) PERCUTANEOUS Cook Medical 1 O34795 485895 771269 5 ENTRY 19GA needle Tegaderm 4 x 3M 1 1626W 318914 486826 794843 5 4 (1626W) INFLATOR Merit 1 ND2308 557033 130845 312735 15 Wave Broadband Medical BasixCompak (PT3767) SHEATH 6FR Terumo 1 TOL360 884591 159256 430965 40 Philippi (NYP299) CHOICE PT Amo 1 [id number] 512617 793512 134071 5 Extra Scientific Support 182cm wire ([id number]) GUIDE 6FR Cardinal 1 [id number] 390745 531551 835138 10 XBLAD 3.5 Health catheter (12011584) LASER ELCA Annalisa 1 110-004 772751 951795 534370 5 [id number] 0.9 Rx Healthcare atherectomy (850482) catheter (030893) GUIDE 6FR Cardinal 1 [id number] 925780 300954 100649 3 XBLAD 4.0 Health catheter (20040628) EUPHORA 3.5 Medtronic 1 [id number] 391022 711361 832378 5 [id number] x 20 Balloon ([id number]) EXOSEAL 6Fr Cardinal 1 EX600 441356 508910 529532 10 (EX600) Health Signature Audit [place] Stage Time Signature Unsigned Intra-Procedure 08/25/2017 Suzanne 10:45:22 AM Counts RT(R) Signatures Monitor : Suzanne Signature : Counts RT Date : Time : [facility] [address] [place] [address]
[~2017-08-25 07:52] MED LIST: ALTACE10 MG PO; AVODART0.5 MG PO; BAYER CHEWABLE81 MG PO; CO Q-10200 MG PO; CRESTOR40 MG PO; FISH OIL 1,0001 CA1 PO; FLOVENT DI50 MCG/DIS INH; JENTADUETO 2.51 EACH PO; METOPROLOL TART25 MG PO; PLAVIX75 MG PO; SORINE80 MG PO; VITAMIN D31000 UNIT PO; XARELTO20 MG PO
[2017-08-25 08:34] VITALS: BP 132/79; Ht 185.4 cm; Wt 94.5 kg
[2017-08-25 08:43] LABS: BASOPHILS 0.1 % (0-2); EOSINOPHILS 4.1 % (0-7); HEMATOCRIT 47.2 % (42.0-54.0); IMMATURE GRANULOCYTES 0.4 % (0-5); LYMPHOCYTES 17.7 % (15-50); MCH 31.1 pg (26.0-34.0); MCHC 33.9 g/dL (31.0-37.0); MCV 91.7 fL (80.0-100.0); MEAN PLATELET VOLUME 9.2 fL (7.4-10.4); MONOCYTES 14.7 % (2-11); PLATELET COUNT 129 10x3/uL (130-400); RBC 5.15 10x6/uL (4.20-6.10); RDW 13.1 % (11.5-14.5)
[2017-08-25 09:03] LABS: CALC OSMOLALITY 284 mosm/kg (275-300); CALCIUM 9.6 mg/dL (8.5-10.1); CARBON DIOXIDE 29.4 mmol/L (21.0-32.0); CHLORIDE - SERUM 104 mmol/L (98-107); CREATININE - SERUM 0.9 mg/dL (0.6-1.3); GLUCOSE 172 mg/dL (74-106); POTASSIUM - SERUM 4.7 mmol/L (3.5-5.1); SODIUM 141 mmol/L (136-145); UREA NITROGEN 12 mg/dL (7-18); eGFR NON AFRICAN AMERICAN 90 mL/min (90-120)
--- NOTE | 2017-08-25 11:04 | NUR ---
6 DEMARIO EXOSEAL R/GROIN CDI NO BLEEDING NO HEMATOMA NOTED. SB RATE 55 CHEST PAIN DENIED INSTRUCTED PATIENT TO KEEP HEAD FLAT ON PILLOW WITH RLE STRAIGHT
--- NOTE | 2017-08-25 11:19 | NUR ---
6 FR EXOSEAL R/GROIN CDI NO BLEEDING NO HEAMTOMA NOTED PATIENT DENIED PAIN OR NEEDS TOLERATING FLUIDS WITH NO NAUSEA
--- NOTE | 2017-08-25 11:29 | NUR ---
6 FR EXOSEAL R/GROIN REMAINS CDI WITH NO BLEEDING OR HEMATOMA NOTED.SANDWICH AND WATER TO BEDSIDE WITH FAMILY ASSISTING
--- NOTE | 2017-08-25 11:55 | NUR ---
6 FR EXOSEAL R/GROIN CDI NO BLEEDING NO HEMATOMA NOTED VSS
--- NOTE | 2017-08-25 12:58 | NUR ---
RESTING QUIETLY WITH EYES CLOSED. VSS AND NO DISTRESS NOTED 6 FR EXOSEAL R/GROIN CDI
--- NOTE | 2017-08-25 13:53 | NUR ---
VOICED NO PAIN OR NEEDS WITH 6 FR EXOSEAL R/GROIN CDI VSS
--- NOTE | 2017-08-25 14:05 | NUR ---
REPOSITIONED TO SITTING WITH HOB UP 30 DEGREES R/GROIN REMAINS CDI NO BLEEDING NO HEAMTOMA NOTED
--- NOTE | 2017-08-25 14:37 | NUR ---
PIV REMOVED WITH DRESSING APPLIED. R/GROIN REMAINS CDI WITH NO DISTRESS NOTED. PATIENT UP TO GET DRESSED
--- NOTE | 2017-08-25 14:42 | NUR ---
PIV REMOVED WITH DRESSING APPLIED. CHEST PAIN IS DENIED WITH R/GROIN CDI NO BLEEDING NO HEMATOMA NOTED. PATIENT UP TO GET DRESSED FOR DISCHARGE HOME
--- NOTE | 2017-08-25 15:03 | NUR ---
VERBAL AND WRITTEN DISCHARGE GONE OVER WITH PATIENT AND BOTH VERBALIZED UNDERSTANDING. R/GROIN CDI NO BLEEDING NO HEMATOMA NOTED PATIENT LEFT VIA WC TO PARKING FOR TRANSPORT HOME WITH CHEST PAIN DENIED
--- NOTE | 2017-08-29 12:15 | HP ---
PATIENT: KEL RODRIGUEZ MEDICAL RECORD: [id number] ACCOUNT: [id number] LOCATION:BENJI : 50 ADMISSION DATE: 08/25/17 HISTORY AND PHYSICAL EXAMINATION ADMITTING DIAGNOSES: 1. Angina. 2. Coronary artery disease. 3. Recent percutaneous transluminal coronary angioplasty stent of the left circumflex with concomitant in-stent restenosis of LAD. 4. Atrial fibrillation. 5. Status post recent DC cardioversion. HISTORY OF PRESENT ILLNESS: Mr. Rodriguez presents with anginal symptomatology, found to have in-stent restenosis of the LAD, found to have new disease of the circumflex. He underwent successful PTCA stent of the circumflex. He is now brought back for laser atherectomy for the in-stent restenosis of the LAD. REVIEW OF SYSTEMS: The patient reports easy bruising but reports no swollen glands. The patient reports no fever, no night sweats, no significant weight gain, no significant weight loss. No significant exercise tolerance. The patient reports no dry eyes, no irritation, no vision change. Patient reports no difficulty hearing and no ear pain. Patient reports no frequent nose bleeds or nose and sinus problems. Patient reports on arm pain on exertion. No shortness of breath while lying down. No history of heart murmur. Patient reports no cough, no wheezing or coughing up blood. Patient reports no abdominal pain, no vomiting. Normal appetite. No diarrhea and not vomiting blood. No nausea and no constipation. Patient reports no incontinence. No difficulty urinating. No hematuria. No increased frequency. Patient reports no muscle aches. No weakness, no arthralgias, no back pain. No swelling of the extremities. Patient reports no abnormal mole, no jaundice, no rashes. Reports no loss of consciousness. No weakness and no numbness. No seizures, dizziness, or headaches. The patient reports no depression, no sleep disturbance, feeling safe in a relationship and no alcohol abuse. Patient reports on fatigue. Reports no runny nose or sinus pressure. No itching, no hives, and no frequent sneezing. PHYSICAL EXAMINATION: GENERAL APPEARANCE: Well-nourished, well-developed, appears stated age. Level of distress, comfortable. PSYCHIATRIC: Mental status, alert, normal affect. Orientation, oriented to time, place and person. EYES: Lids and conjunctiva, noninjected. No discharge, no pallor. ENT: Lips, teeth, gums, normal dentition. Oropharynx, no cyanosis, no pallor. NECK: Carotid arteries, bilateral normal upstroke, no bruits, no thrills. JUGULAR VEINS: No jugular venous pressure or distention. CERVICAL LYMPH NODES: Nontender, nonenlarged. THYROID: Not enlarged. Nontender. No nodules. LUNGS: Respiratory effort, unlabored. CHEST: Normal curvature. No thoracic deformity. No chest wall tenderness. Percussion, resonant. Auscultation, clear. No wheezes, no rales, no rhonchi. CARDIOVASCULAR: Precordial exam, nondisplaced. No heaves or pericardial thrills. Rate and rhythm, regular. Heart sounds, normal S1, normal S2. No S3, no gallop, no rub. Systolic murmur, not heard. Diastolic murmur, not heard. EXTREMITIES: No cyanosis, no edema. Peripheral pulses, full and equal in all HISTORY AND PHYSICAL [id number] KEL RODRIGUEZ extremities, except as noted. No bruits appreciated. ABDOMEN: Soft, nondistended. Normal aorta. No bruit. Nontender. No masses. Liver, nontender, no hepatomegaly. Spleen, nontender, no splenomegaly. MUSCULOSKELETAL: No joint tenderness. No joint swelling. No erythema. NEUROLOGICAL: Normal gait, normal strength, normal tone. SKIN: Warm and dry. OVERALL IMPRESSION: Proceed with laser atherectomy of the LAD. TRANSINT:[id number] Voice Confirmation ID: [id number] DOCUMENT ID: [id number] DEJUAN JACK MD at 1215 CC: [id number] DICTATION DATE: 08/25/17 0936 FRANKFURTER INSPECTOR: 08/25/17 1009 [facility] CLI 08/25/17 [place] [id number] [place] [id number]
--- NOTE | 2017-08-29 12:17 | OP ---
PATIENT NAME: KEL IBARRA MEDICAL RECORD: [id number] :50 LOCATION:D.CAT ADMISSION DATE: SURGEON: DEJUAN JACK MD DATE OF OPERATION: 08/25/2017 PROCEDURES: 1. Laser atherectomy, LAD. 2. PTCA, LAD. 3. Selective coronary angiography. INDICATION: Angina and coronary artery disease. PROCEDURE IN DETAIL: After informed consent was obtained and after detailed explanation of risks and benefits as well as alternative therapies, the patient elected to proceed with angiogram and angioplasty. The right femoral area was prepped and draped in normal sterile fashion. The right femoral artery was cannulated via modified Seldinger technique with placement of 6-Maltese sheath. All catheters exchanged through this sheath. FINDINGS: The left anterior descending has previously placed stents proximally with up to 75-80% in-stent restenosis. We lasered this with a 0.9 mm bur balloon, this with a 3.5 balloon. Result was 0% residual stenosis. OVERALL IMPRESSION: Successful percutaneous transluminal coronary angioplasty laser atherectomy of the left anterior descending going from 80% initial stenosis to 0% residual. TRANSINT:[id number] Voice Confirmation ID: [id number] DOCUMENT ID: [id number] DEJUAN JACK MD at 1217 CC: [id number] DICTATION DATE: 08/25/17 1045 CUSTOMER EXPERIENCE CONSULTANT: 08/25/17 1120 [facility] CLI 08/25/17 [place] [id number] [place] [id number]
== END | disposition home or self-care (01) ==
LOC: D.CATH 07:52
PROVIDERS: Internal Medicine Interventional Cardiology
DX: I25.110 Atherosclerotic heart disease of native coronary artery with unstable angina pectoris (principal); Z01.812 Encounter for preprocedural laboratory examination

== ENCOUNTER 2018-11-30 16:30 | Emergency (ER) | payer OTHER ==
[~2018-11-30] VITALS: Ht 185.4 cm; Wt 93.6 kg
[2018-11-30 16:39] VITALS: Ht 185.4 cm; Wt 93.6 kg
[2018-11-30] MEDS ORDERED: JANUMET 50-1,01 EAC1 PO (16:43)
[2018-11-30 17:39] LABS: BASOPHILS 0.3 % (0-2); EOSINOPHILS 4.3 % (0-7); HEMATOCRIT 45.5 % (42.0-54.0); HEMOGLOBIN 15.5 g/dL (13.5-17.5); IMMATURE GRANULOCYTES 0.3 % (0-5); LYMPHOCYTES 31.1 % (15-50); MCH 30.5 pg (26.0-34.0); MCHC 34.1 g/dL (31.0-37.0); MCV 89.6 fL (80.0-100.0); MEAN PLATELET VOLUME 9.4 fL (7.4-10.4); MONOCYTES 11.3 % (2-11); NEUTROPHILS 52.7 % (40-80); RBC 5.08 10x6/uL (4.20-6.10); RDW 13.1 % (11.5-14.5); WBC 7.5 10x3/uL (4.8-10.8)
[2018-11-30 17:58] LABS: ALBUMIN 3.8 g/dL (3.4-5.0); ALKALINE PHOSPHATASE 63 U/L (46-116); ALT (SGPT) 28 U/L (10-68); BILIRUBIN - TOTAL 0.62 mg/dL (0.2-1.3); CALC OSMOLALITY 279 mosm/kg (275-300); CALCIUM 9.6 mg/dL (8.5-10.1); CARBON DIOXIDE 26.2 mmol/L (21.0-32.0); CHLORIDE - SERUM 104 mmol/L (98-107); CREATININE - SERUM 0.9 mg/dL (0.6-1.3); GLUCOSE 133 mg/dL (74-106); PLATELET COUNT 180 10x3/uL (130-400); POTASSIUM - SERUM 4.4 mmol/L (3.5-5.1); PROTEIN - SERUM 7.5 g/dL (6.4-8.2); SODIUM 139 mmol/L (136-145); UREA NITROGEN 13 mg/dL (7-18); eGFR NON AFRICAN AMERICAN 89 mL/min (90-120)
[2018-11-30 18:06] LABS: APTT 30.5 SECONDS (22.8-39.4); INR 1.12 (0.85-1.17); PROTIME 13.9 SECONDS (11.6-15.0)
[2018-11-30 18:13] LABS: CKMB 0.6 U/L (0.0-3.6); CREATINE KINASE 55 UL (21-232); MAGNESIUM - SERUM 2.3 mg/dL (1.8-2.4)
[2018-11-30 18:17] LABS: TROPONIN-I < 0.017 ng/mL (0.000-0.060)
[2018-11-30 21:13] VITALS: BP 129/78
== END 2018-11-30 21:14 | disposition home or self-care (01) ==
LOC: D.ER 16:30
PROVIDERS: Family Medicine
DX: R00.2 Palpitations (principal); I48.91 Unspecified atrial fibrillation; Z79.01 Long term (current) use of anticoagulants

== ENCOUNTER → 2018-12-13 08:13 | Outpatient (CLI) | payer OTHER ==
[2018-11-30 16:39] VITALS: BMI 27.2
[~2018-12-13 08:13] MED LIST changes: +JANUMET 50-1,01 EAC1 PO
--- NOTE | 2018-12-14 15:03 | ST ---
PATIENT:KEL IBARRA MEDICAL RECORD: [id number] SEX: M LOCATION:[facility] ORDER #: ADMISSION DATE: 12/13/18 AGE OF PATIENT: 68 REFERRING PHYSICIAN: INTERPRETING PHYSICIAN: DEJUAN JACK MD DATE OF SERVICE: 12/13/2018 PROCEDURE: Nuclear stress test. INDICATION: Chest pain, coronary artery disease, and hypertension. The patient was exercised on standard Lexiscan protocol with 32 mCi of sestamibi injected at peak stress, 11 mCi were done previously for rest images. FINDINGS: Gated SPECT reveals mildly depressed ejection fraction of 47% with decreased thickening and brightening throughout the anterior and apical segments. SPECT imaging: Cardiolite was used as myocardial perfusion agent. There was a fixed perfusion defect anteroapically compatible with previous anteroapical myocardial infarction. There is; however, reversibility inferiorly. This includes the basal, mid, apical inferior segments. The degree of reversibility is mild to moderate. The amount of myocardium involved between 2 defects is large. OVERALL IMPRESSION: This is an abnormal nuclear stress test, fixed perfusion defect anteriorly and apically, reversible ischemia inferiorly suggestive of multivessel coronary artery disease. We will proceed with coronary angiography as followup study. TRANSINT:[id number] Voice Confirmation ID: [id number] DOCUMENT ID: [id number] DEJUAN JACK MD at 1503 CC: AMANDA MARIA MD [id number] DICTATION DATE: 12/14/18 1216 CAMPAIGN DEVELOPER: 12/14/18 1302 [facility]P CLI 12/13/18 [place] [id number] [place] [address]
== END | disposition home or self-care (01) ==
LOC: D.HCCARDIO 08:13
PROVIDERS: ATTEND Internal Medicine Interventional Cardiology
DX: I25.10 Atherosclerotic heart disease of native coronary artery without angina pectoris (principal)

== ENCOUNTER 2018-12-28 09:43 | Outpatient (CLI) | payer OTHER ==
[~2018-12-28] VITALS: Ht 185.4 cm; Wt 93.2 kg
--- NOTE | ~2018-12-28 | HEMODYNAMI ---
PATIENT:KEL IBARRA MEDICAL RECORD: [id number] : 50 LOCATION:[facility] ADMISSION DATE: 12/28/18 Generatedon:12/28/201814:01 Patient name: KEL IBARRA Patient #: [id number] SSN: DO B: 1950 Date of study: 12/28/2018 Page: Of Hemodynamic Procedure Report Patient Data Patient Demographics Procedure consent was obtained First Name: KEL Gender: Male Last Name: STACEY : 1950 [facility] Initial: CHRIS Age: 68 year(s) Patient #: [id number] Race: Unknown Additional ID: [id number] Contact details Address: [address] [place] [address] State: [place] City: [place] Zip code: [address] Past Medical History Allergies Allergen Reaction Date Comments Reported Other allergy 08/23/2017 zetia, niacin Admission Admission Data Admission Date: 12/28/2018 Admission Time: 9:43 Admit Source: Other Procedure Procedure Types Cath Procedure Diagnostic Procedure [facility] w/Coronaries PCI Procedure Coronary Stent Coronary Stent Initial x2 Procedure Description Procedure Date Procedure Date: 12/28/2018 Procedure Start Time: 13:35 Procedure End Time: 13:58 Procedure Staff Name Function Richmond Armendariz MD Performing Physician Domo Brandon RT Monitor Neo Michel RN Nurse Mariluz Johnson RT Scrub Procedure Data Cath Procedure Fluoroscopy Diagnostic fluoroscopy Total fluoroscopy Time: 7.4 time: 7.4 min min Diagnostic fluoroscopy Total fluoroscopy dose: dose: 1223 mGy 1223 mGy Contrast Material Contrast Material Type Amount (ml) Isovue 300 0 Isovue 370 109 Entry Location Entry Primary Successful Side Size Upsize Upsize Entry Closure Csott ccessful Closure Location (Fr) 1 (Fr) 2 (Fr) Remarks Device Remarks Femoral Right 5 Fr 6 Fr Mechanical FEMSTOP artery Short Compression Diagnostic catheters Device Type Used For End Catheter Placement MULTIPACK Pigtail 5 Fr LV Angiography catheter MULTIPACK JL 4.0 5Fr Left Coronary catheter Angiography MULTIPACK 3DRC 5Fr Right Coronary catheter Angiography Procedure Complications No complications Procedure Medications Medication Administration Route Dosage 0.9% NaCl I.V. 100 ml/hr Oxygen etCO2 Nasal cannula 2 l/min Heparin Flush Bag added to field 2 bags (1000units/500ml NS) Lidocaine 2% added to field 20 Benadryl I.V. 50 mg Versed I.V. 2 mg Fentanyl I.V. 100 mcg Heparin Bolus I.V. 4000 units Integrilin (Bolus I.V. 8.5 ml 2mg/ml) Integrilin (Bolus wasted 1.5 ml 2mg/ml) Plavix P.O. 600 mg Hemodynamics Rest Heart Rate: 48 (bpm) Snapshots Pre Cath Intra NCS Post Cath Vital Signs Time Heart Resp SPO2 etCO2 NIBP (mmHg) Rhythm Pain Sedation Rate (ipm) (%) (mmHg) Status Level (bpm) 13:19:20 112 19 0 152/75(118) NSR 0 (11) 10(A) , No pain 13:23:29 45 12 96 18.7 127/69(98) NSR 0 (11) 10(A) , No pain 13:27:43 45 13 98 11.2 117/67(78) NSR 0 (11) 10(A) , No pain 13:31:53 46 17 98 38.9 114/67(78) NSR 0 (11) 10(A) , No pain 13:36:01 45 12 96 38.9 108/66(79) NSR 0 (11) 10(A) , No pain 13:40:07 46 16 97 38.9 112/66(84) NSR 0 (11) 10(A) , No pain 13:44:19 47 13 97 40.4 106/57(81) NSR 0 (11) 9(A) , No pain 13:49:22 52 17 98 39.6 130/74(85) NSR 0 (11) 9(A) , No pain 13:53:34 54 18 97 37.4 134/73(115) NSR 0 (11) 9(A) , No pain 13:57:46 50 15 97 39.6 141/78(116) NSR 0 (11) 10(A) , No pain Medications Time Medication Route Dose Verified Delivered Reason Notes Effectiveness by by 13:20:17 0.9% NaCl I.V. 100 Neo Neo Per physician ml/hr Marilu Michel RN RN 13:20:25 Oxygen etCO2 2 Neo Neo for low 02 sats Nasal l/min Marilu Michel cannula RN RN 13:20:34 Heparin Flush added 2 Neo Neo used for Bag to bags Marilu Michel procedure (1000units/500ml field RN RN NS) 13:20:42 Lidocaine 2% added 20ml Neo Neo for local to vial Marilu Michel anesthetic field RN RN 13:20:51 Benadryl I.V. 50 mg Neo Neo Per physician Marilu Michel RN RN 13:32:13 Versed I.V. 2 mg Neo Neo for sedation Marilu Michel RN RN 13:32:21 Fentanyl I.V. 100 Neo Neo for sedation mcg Marilu Michel RN RN 13:41:39 Heparin Bolus I.V. 4000 Neo Neo for units Marilu Michel anticoagulation RN RN 13:41:55 Integrilin I.V. 8.5 Neo Neo for (Bolus 2mg/ml) ml Marilu Michel antiplatelet RN RN therapy 13:42:15 Integrilin wasted 1.5 Neo Neo to sharp's (Bolus 2mg/ml) ml Marilu Michel RN RN 13:58:35 Plavix P.O. 600 Neo Neo for mg Marilu Michel antiplatelet RN RN therapy Procedure Log Time Note 13:07:52 Admit Source: Other 13:08:13 Diagnostic Cath status Elective 13:08:16 Mariluz Johnson RT(R) sent for patient. Start room use. 13:08:18 Time tracking: Regular hours (M-F 7:00 - 5:00) 13:08:22 Plan of Care:Hemodynamics will remain stable., Cardiac rhythm will remain stable., Comfort level will be maintained., Respiratory function will remain adequate., Patient/ family verbilizes understanding of procedure., Procedure tolerated without complication., Recovers from procedure without complications.. 13:08:27 Patient received from Pre/Post Procedure Room to CCL 1 Alert and oriented. Tansferred to table in Supine position. 13:08:29 Warm blankets applied, and hanny hugger turned on for patient comfort. 13:08:29 Correct patient and procedure confirmed by team. 13:08:30 Signed procedure consent form obtained from patient. 13:08:31 ECG and BP/O2 sat monitors applied to patient. 13:18:00 Vital chart was started 13:18:01 Baseline sample Acquired. 13:18:05 Rhythm: sinus rhythm 13:18:06 Full Disclosure recording started 13:18:44 H&P Date Dictated: 12/05/2018 Within 30 days and on chart., H&P Addendum completed by physician on day of procedure. (MUST COMPLETE FOR ALL OUTPATIENTS). 13:18:44 Pre-procedure instructions explained to patient. 13:18:46 Pre-op teaching completed and patient verbalized understanding. 13:18:48 Family in waiting room. 13:18:49 Patient NPO since Midnight. 13:18:57 Is the patient allergic to Iodine/contrast media? No. 13:18:59 Was the patient premedicated? No 13:19:05 Is patient on blood thinner?Yes 13:19:08 ACC The patient was administered the following blood thiners within the last 24 hours: ACCAspirin 13:19:10 Patient diabetic? No. 13:19:11 ----Pre-sedation anethsthesia assessment.---- 13:19:13 Previous problem with sedation/anesthesia? No ? 13:19:14 Snore? Yes 13:19:15 Sleep apnea? No 13:19:17 Deviated septum? No 13:19:18 Opens mouth fully? Yes 13:19:19 Sticks out tongue? Yes 13:19:21 Airway obstruction? No ? 13:19:23 Dentures? No ? 13:19:27 Pre procedure: right dorsailis pedis pulse 2+ Normal; easily identifiable; not easily obliterated 13:19:30 Patient pain scale 0/10 ?. 13:19:35 IV patent on arrival in left antecubital with 0.9% NaCl at 10ml/hr. 13:19:41 Lab results completed and on chart. 13:19:45 Right groin area was prepped with chlora-prep and draped in sterile fashion 13:19:45 Alarms reviewed by R. N. 13:19:46 Sharps counted by scrub and verified by R.N. 13:20:17 0.9% NaCl 100 ml/hr I.V. was administered by Neo Michel RN; Per physician; 13:20:25 Oxygen 2 l/min etCO2 Nasal cannula was administered by Neo Michel RN; for low 02 sats; 13:20:34 Heparin Flush Bag (1000units/500ml NS) 2 bags added to field was administered by Neo Michel RN; used for procedure; 13:20:42 Lidocaine 2% 20ml vial added to field was administered by Neo Michel RN; for local anesthetic; 13:20:51 Benadryl 50 mg I.V. was administered by Neo Michel RN; Per physician; 13:23:01 Use device set Femoral Dx 13:23:02 ACIST Syringe (81902) opened to sterile field. 13:23:02 Bag Decanter (2002S) opened to sterile field. 13:23:03 Medline Cath Pack ([id number]) opened to sterile field. 13:23:03 DIAGNOSTIC WIRE .035 260cm J wire (358689) opened to sterile field. 13:23:04 ACIST Hand Control (42356) opened to sterile field. 13:23:05 ACIST Manifold (05255) opened to sterile field. 13:23:05 DIAGNOSTIC Multipack 5Fr catheter set (EI1594) opened to sterile field. 13:23:06 Tegaderm 4 x 4 (1626W) opened to sterile field. 13:23:07 SHEATH 5FR Hen[place] (CVU282) opened to sterile field. 13:30:49 Physician arrived 13:30:50 --------ALL STOP TIME OUT------ 13:30:51 Final Timeout: patient, procedure, and site verified with staff and physician. All members of the team are in agreement. 13:30:53 Right groin site verified by team. 13:30:56 Maximum allowable Isovue 370 dose ?ml. Physician notified. (300ml for normal creatinines. For patients with creatinine of 1.7 or higher multiply weight(kg) x 5 divided by creatinine.) 13:30:59 Maximum allowable Isovue 370 dose 300ml. Physician notified. (300ml for normal creatinines. For patients with creatinine of 1.7 or higher multiply weight(kg) x 5 divided by creatinine.) 13:31:05 Fire Safety Assessment: A--An alcohol-based skin anteseptic being used preoperatively., C--Open oxygen or nitrous oxide is being used., D--An ESU, laser, or fiber-optic light is being used. 13:31:09 Physical assessment completed. ASA score P 2 - A patient with mild systemic disease as per Richmond Armendariz MD. 13:31:14 Sedation plan: IV Moderate Sedation Medication:Versed, Fentanyl 13:32:13 Versed 2 mg I.V. was administered by Neo Michel RN; for sedation; 13:32:21 Fentanyl 100 mcg I.V. was administered by Neo Michel RN; for sedation; 13:35:12 Procedure started. 13:35:21 Local anesthetic to right femoral artery with Lidocaine 2% by Richmond Armendariz MD.INITIAL ACCESS ONLY 13:35:31 A 5 Fr sheath was inserted into the Right Femoral artery 13:35:47 A MULTIPACK Pigtail 5 Fr catheter was advanced over the wire and used for LV Angiography. 13:35:58 LV angiography performed. 13:36:00 LV gram done using MADDOX 13:36:29 EF : 40 % 13:36:31 Catheter removed. 13:36:37 A MULTIPACK JL 4.0 5Fr catheter was advanced over the wire and used for Left Coronary Angiography. 13:36:41 LCA angiography performed. 13:38:01 Catheter removed. 13:38:06 A MULTIPACK 3DRC 5Fr catheter was advanced over the wire and used for Right Coronary Angiography. 13:38:25 RCA angiography performed. 13:38:32 Catheter removed. 13:38:51 SHEATH 6FR [place] (XKF481) opened to sterile field. 13:38:51 INFLATOR Merit BasixCompak (IU1205) opened to sterile field. 13:38:52 CHOICE PT Extra Support 182cm wire ([id number]) opened to sterile field. 13:38:57 EXOSEAL 6Fr (EX600) opened to sterile field. 13:39:35 GUIDE 6FR XBLAD 4.0 catheter ([id number]) opened to sterile field. 13:40:06 Sheath upsized to a 6 Fr Short. 13:40:14 6 Fr XBLAD 4 guide catheter was inserted over the wire 13:40:24 CPTES wire advanced. 13:41:39 Heparin Bolus 4000 units I.V. was administered by Neo Michel RN; for anticoagulation; 13:41:55 Integrilin (Bolus 2mg/ml) 8.5 ml I.V. was administered by Neo Michel RN; for antiplatelet therapy; 13:42:15 Integrilin (Bolus 2mg/ml) 1.5 ml wasted was administered by Neo Michel RN; to sharp's; 13:44:04 Place stent Inflation Number: 1 A ANA LILIA RX 3.5 x 18 stent ([id number]) was prepped and advanced across the Mid CX. The stent was deployed at 19 CANDIDO for 0:15 (min:sec). 13:44:29 Stent catheter was removed intact over wire. 13:44:30 Wire removed. 13:44:45 REDIRECTED CPTES wire advanced. 13:46:59 Place stent Inflation Number: 1 A ANA LILIA RX 3.0 x 34 stent ([id number]) was prepped and advanced across the Prox LAD. The stent was deployed at 19 CANDIDO for 0:10 (min:sec). 13:46:59 Inflation number: 2 The stent balloon was then re-inflated across the Prox LAD to 23 CANDIDO for 0:11 (min:sec). 13:47:31 Stent catheter was removed intact over wire. 13:49:29 Inflation number: 3 The stent balloon was then re-inflated across the Prox LAD to 21 CANDIDO for 0:13 (min:sec). 13:50:56 Inflate balloon Inflation number: 4 A NC EUPHORA 3.5 x 12 balloon ([id number]) was prepped and advanced across the Prox LAD, then inflated to 23 CANDIDO for 0:19 (min:sec). 13:51:19 Inflation number: 5 The NC EUPHORA 3.5 x 12 balloon ([id number]) was reinflated across the Prox LAD, to 23 CANDIDO for 0:11 (min:sec). 13:52:24 Balloon removed over the wire. 13:52:24 Wire removed. 13:52:41 Guide Catheter removed. unable to get back-up support 13:53:20 Contrast amount:Isovue 300 0ml. 13:53:22 Contrast amount:Isovue 370 109ml. 13:53:31 Sheath removed intact; hemostasis achieved with Mechanical Compression to the Right Femoral artery. 13:53:33 Procedure ended.(Physican Out) 13:53:53 FEMSTOP Gold (K78609) opened to sterile field. 13:54:18 Fluoroscopy time 07.40 minutes. 13:54:26 Flurop Dose total: 1223 13:54:26 Fluoroscopy dose: 1223 mGy 13:54:28 Sharps counted by scrub and verified by R.N. 13:54:46 Procedure type changed to Cath procedure, Diagnostic procedure, LHC, LHC w/Coronaries, PCI procedure, Coronary Stent, Coronary Stent Initial x2 13:54:53 Insertion/operative site no bleeding no hematoma. 13:55:00 Post-op/insertion site Right Femoral artery dressed using a 4 x 4 and Tegaderm. 13:57:55 Post right femoral artery:stable 13:58:00 Femstop placed over the right femoral artery at 146 mmHg. Hemostasis achieved. 13:58:05 Post procedure rhythm: unchanged. 13:58:07 Post procedure instruction explained to patient.Patient verbalizes understanding. 13:58:08 Procedure and supply charges have been captured, reviewed, submitted and are correct. 13:58:34 Procedure Complication : No complications 13:58:35 Plavix 600 mg P.O. was administered by Neo Michel RN; for antiplatelet therapy; 13:58:37 Vital chart was stopped 13:58:40 See physician's report for complete and final results. 13:58:44 Report given to Pre/Post Procedure Room. 13:58:47 Patient transfered to Pre/Post Procedure Room with Stretcher. 13:58:49 Procedure ended. 13:58:49 Full Disclosure recording stopped 13:58:56 ACC-PCI Only Patient was given prescriptions, or instructed by Richmond Armendariz MD to start/continue the following medications upon discharge: Plavix 13:58:57 End room use (Document Last) Intervention Summary Intervention Notes Time ActionType Lesion and Equipment Used Action# Pressure Duration Attributes 13:44:04 Place stent Mid CX ANA LILIA RX 3.5 x 1 19 00:15 18 stent ([id number]) 13:46:59 Place stent Prox LAD ANA LILIA RX 3.0 x 1 19 00:10 34 stent ([id number]) 13:46:59 Reinflate Prox LAD ANA LILIA RX 3.0 x 2 23 00:11 stent 34 stent balloon ([id number]) 13:49:29 Reinflate Prox LAD ANA LILIA RX 3.5 x 3 21 00:13 stent 18 stent balloon ([id number]) 13:50:56 Inflate Prox LAD NC EUPHORA 3.5 4 23 00:19 balloon x 12 balloon ([id number]) 13:51:19 Reinflate Prox LAD NC EUPHORA 3.5 5 23 00:11 balloon x 12 balloon ([id number]) Device Usage Item Name Manufacture Quantity Catalog Number Hospital Part Current M inimal Lot# / Charge Number Stock Stock Serial# Code ACIST Syringe Acist 1 48427 164174 309186 798041 2 0 (01772) Medical Systems Inc Bag Decanter Microtek 1 183920 83593 806384 5 () Medical Inc. Medline Cath Medline 1 [id number] 718462 81367 457586 5 Pack ([id number]) DIAGNOSTIC St Dhaval 1 544687 456739 456332 364675 3 0 WIRE .035 260cm J wire (871766) ACIST Hand Acist 1 77296 842797 522127 663101 5 Control Medical (08844) Systems Inc ACIST Manifold Acist 1 62759 057301 064089 430410 5 (71400) Medical Systems Inc DIAGNOSTIC Cardinal 1 ZD3504 390906 23450 703933 3 0 Multipack 5Fr Health catheter set (TA4381) Tegaderm 4 x 4 3M 1 1626W 499616 461930 771277 5 (1626W) SHEATH 5FR Terumo 1 ZTT941 980636 329314 582284 5 Henagar (EZX961) MULTIPACK Cardinal 1 498850 5 Pigtail 5 Fr Health catheter MULTIPACK JL Cardinal 1 426694 5 4.0 5Fr Health catheter MULTIPACK 3DRC Cardinal 1 347187 5 5Fr catheter Health SHEATH 6FR Terumo 1 WVW977 303698 245536 207494 4 0 [place] (XPT252) INFLATOR Merit Merit 1 BH8330 769726 417427 031388 1 5 [employer] (AT1957) CHOICE PT [place] 1 [id number] 521833 568099 493803 5 Extra Support Scientific 182cm wire ([id number]) EXOSEAL 6Fr Cardinal 1 EX600 833363 928246 957416 1 0 (EX600) Health GUIDE 6FR Cardinal 1 [id number] 810697 772216 673571 3 XBLAD 4.0 Health catheter ([id number]) ANA LILIA RX 3.5 x Medtronic 1 [id number] 105313 0432342 582884 5 [id number] 18 stent ([id number]) ANA LILIA RX 3.0 x Medtronic 1 [id number] 029769 4753621 792231 5 [id number] 34 stent ([id number]) NC EUPHORA 3.5 Medtronic 1 [id number] 328995 829011 192371 1 [id number] x 12 balloon ([id number]) FEMSTOP Gold St Dhaval 1 K74543 987168 741492 919645 5 ([id number]) Signature Audit [place] Stage Time Signature Unsigned Intra-Procedure 12/28/2018 Domo ADAMS(Sandrita) 2:01:38 PM Signatures Monitor : Domo ADAMS Signature : Date : Time : [address] [place] [address]
[2018-12-28 10:08] VITALS: BP 134/67; Ht 185.4 cm; Wt 93.2 kg
[2018-12-28 10:22] LABS: CALC OSMOLALITY 284 mosm/kg (275-300); CALCIUM 9.5 mg/dL (8.5-10.1); CARBON DIOXIDE 28.9 mmol/L (21.0-32.0); CHLORIDE - SERUM 105 mmol/L (98-107); CREATININE - SERUM 0.7 mg/dL (0.6-1.3); GLUCOSE 189 mg/dL (74-106); POTASSIUM - SERUM 4.5 mmol/L (3.5-5.1); SODIUM 140 mmol/L (136-145); UREA NITROGEN 14 mg/dL (7-18); eGFR NON AFRICAN AMERICAN > 90 mL/min (90-120)
[2018-12-28 11:24] LABS: BASOPHILS 0.3 % (0-2); EOSINOPHILS 3.4 % (0-7); HEMATOCRIT 45.6 % (42.0-54.0); HEMOGLOBIN 15.3 g/dL (13.5-17.5); IMMATURE GRANULOCYTES 0.1 % (0-5); LYMPHOCYTES 29.4 % (15-50); MCHC 33.6 g/dL (31.0-37.0); MCV 89.4 fL (80.0-100.0); MEAN PLATELET VOLUME 9.5 fL (7.4-10.4); MONOCYTES 11.7 % (2-11); NEUTROPHILS 55.1 % (40-80); PLATELET COUNT 158 10x3/uL (130-400); RDW 13.2 % (11.5-14.5); WBC 6.7 10x3/uL (4.8-10.8)
[2018-12-28] MEDS ORDERED: PLAVIX75 MG PO (14:30)
--- NOTE | 2018-12-28 14:39 | NUR ---
HEYDIA SERVED, PT IS ALERT AND DENIES ANY C/O. FESTOP IN PLACE WITH NO BLEEDING OR HEMATOMA NOTED. PEDAL PULSES PALPABLE. SINUS KEON AT 49, NO C/O CHEST DISCOMFORT. DR JACK HAS ROUNDED ON PT.
--- NOTE | 2018-12-28 15:04 | NUR ---
DR JACK HAS ROUNDE DON PT. FEMSTOP CDI TO RIGHT GROIN, PEDAL PULSES PALPABLE. VSS. HOB IS FLAT, AT BEDSIDE.
--- NOTE | 2018-12-28 15:29 | NUR ---
FEMSTOP PRESSURE WEANED Y 20 MM HG WITH NO BLEEDING NOTED. PEDAL PULSES PAPLPABLE. HOB IS FLAT. AT BEDSIDE.
--- NOTE | 2018-12-28 15:35 | NUR ---
FEMSTOP PRESSURE WEANED BY 20 MM HG, NO BLEEDING OR HEMATOMA NOTED. PEDAL PULSES PALPABLE, HOB FLAT, AT BEDSIDE.
--- NOTE | 2018-12-28 15:45 | NUR ---
FEMSTOP PRESSURE WEANED BY 10MM HG, PT C/O PAIN TO BACK WITH LAYING FLAT AND DISCOMFORT TO FEMSTOP SITE. NO BLEEDING OR HEMATOMA NOTED AT SITE. ORDER OBAINED FOR NORCO 10MG TAB.
--- NOTE | 2018-12-28 16:04 | NUR ---
PT HAS RECEIVED NORCO 10MG PO FOR C/O BACK AND CATH SITE PAIN.
--- NOTE | 2018-12-28 16:16 | NUR ---
20 MM HG WEANED FROM FEMSTOP WITH NO BLEEDING OR HEMATOMA NOTED.
--- NOTE | 2018-12-28 16:51 | NUR ---
FEMSTOP HAS BEEN WEANED AND DC'D, 4X4 AND TEGADERM APPLIED TO SITE. AREA IS SOFT AND NO HEMATOMA NOTED. PEDAL PULSES PALPABLE. VSS, MIGUEL SANDWICH AND PO FLUIDS WITH NO C/O NAUSEA. AT BEDSIDE. HOB FLAT.
--- NOTE | 2018-12-28 17:54 | NUR ---
1730 HOB ELEVTED 30 DEGREES, DRESSING CDI TO RIGHT GROIN. VSS, PT DENIES ANY C/O AT THIS TIME. PEDAL PULSES PALPABLE. 1745 HOB FULLY ELEVATED. DRESSING IS CDI, PEDAL PULSES PALPABLE. DC INSTRUCTIONS REVIEWED WITH PT AND WHO VERBALIZE UNDERSTANDING. PLAVIX PRESCRIPTION TO PT, PT AND VERBALIZE UNDERSTANDING TO START THIS MEDICATION TOMORROW.
--- NOTE | 2018-12-28 18:21 | NUR ---
1800 PIV DC'D WITH CATH INTACT AND PT DRESSING FOR DC TO HOME, VOIDED 700 CC CLEAR YELLOW URINE TO URINAL. 1805 PT ESCORTED TO PRIVATE AUTO VIA WC WITH DRIVING HIM HOME. PT DENIES ANY C/O, HAS ALL PERSONAL BELONGINGS AT PA.
--- NOTE | 2019-01-02 14:38 | OP ---
PATIENT NAME: KEL IBARRA MEDICAL RECORD: [id number] :50 LOCATION:D.CAT ADMISSION DATE: SURGEON: DEJUAN JACK MD DATE OF OPERATION: 12/28/2018 DATE OF SERVICE: 12/28/2018 PROCEDURES: 1. PTCA stent of LAD. 2. PTCA stent of left circumflex. 3. Selective coronary angiography. 4. Left ventriculogram. 5. Left heart catheterization. INDICATION: Unstable angina and coronary artery disease. PROCEDURE IN DETAIL: After informed consent was obtained and after a detailed description of risks, benefits as well as alternative therapies, the patient elected to proceed with angiogram and angioplasty. The right femoral area was prepped and draped in normal sterile fashion. Right femoral artery was cannulated via modified Seldinger technique with placement of 6-Slovenian sheath. All catheters exchanged through this sheath. FINDINGS: Left ventriculogram was performed in standard 30-degree MADDOX view, reveals global hypokinesis, ejection fraction of 40%. SELECTIVE CORONARY ANGIOGRAPHY: 1. Left main is with no significant angiographic disease. 2. Left anterior descending has previously placed stent. There is 95% in-stent restenosis. 3. Left circumflex has a previously placed stent. There is 90% in-stent restenosis. 4. The right coronary has previously placed stents, these are widely patent with no significant restenosis. No disease elsewise at the RCA or its branches. PTCA STENT OF THE LAD AND CIRCUMFLEX: The LAD was addressed with a 3.0 x 30 mm Buckley. High pressure dilatation was made with a 3.5 balloon up to 23 atmospheres, was an area that would not release, there is at least 30-40% residual stenosis, but markedly improved from the 95% that it was previously. PTCA STENT OF THE LEFT CIRCUMFLEX: The stent used was a 3.5 x 18 mm Buckley. Result was 0% residual stenosis. OVERALL IMPRESSION: 1. Successful percutaneous transluminal coronary angioplasty stent of left circumflex going from 90% initial stenosis to 0% residual. 2. Successful percutaneous transluminal coronary angioplasty stent of the left anterior descending going from 95% initial stenosis to 40% residual stenosis. Area of heavily calcified vessel that would not release completely despite a 3.5 high pressure balloon taken to 23 atmospheres. If this area does come back, we would have to evaluate for bypass surgery. TRANSINT:[id number] Voice Confirmation ID: [id number] DOCUMENT ID: [id number] OPERATIVE REPORT [id number] KEL IBARRA, DEJUAN LOVE at 1438 CC: [id number] DICTATION DATE: 12/28/18 1359 BILLING CLERK: 12/28/18 1529 DEP CLI 12/28/18 [id number] [place] [address]
== END 2018-12-28 18:05 | disposition home or self-care (01) ==
LOC: D.CATH 09:43
PROVIDERS: ATTEND Internal Medicine Interventional Cardiology
DX: I25.110 Atherosclerotic heart disease of native coronary artery with unstable angina pectoris (principal); Z01.812 Encounter for preprocedural laboratory examination